=== PATIENT | female | born 1980 | race Caucasian/White ===

== ENCOUNTER 2017-06-29 16:51 | Emergency (ER) | payer MEDICAID, OTHER ==
[~2017-06-29] VITALS: Wt 68.2 kg
[2017-06-29] MEDS ORDERED: KETOROLAC 30 MG INJ IM STA (17:21)
[2017-06-29 18:02] LABS: ADD UMIC YES; UR ASCORBIC ACID NEGATIVE (NEGATIVE); UR BILIRUBIN (Dip) NEGATIVE (NEGATIVE); UR BLOOD (Dip) 3+ mg/dL (NEGATIVE); UR CLARITY CLEAR (CLEAR); UR COLOR YELLOW (YELLOW); UR GLUCOSE (Dip) NEGATIVE (NEGATIVE); UR KETONES (Dip) NEGATIVE (NEGATIVE); UR LEUKOCYTE ESTERASE (Dip) 1+ Leu/ul (NEGATIVE); UR NITRITE (Dip) NEGATIVE (NEGATIVE); UR RBC 1 /HPF (0-5); UR SQUAMOUS EPITHELIAL CELL FEW /HPF (FEW); UR TOTAL PROTEIN (Dip) NEGATIVE (NEGATIVE); UR UROBILINOGEN (Dip) NEGATIVE (NEGATIVE)
--- NOTE | 2017-06-29 18:15 | RADRPT ---
PROCEDURE: XR, left foot. CLINICAL INDICATION: Pain. TECHNIQUE: Three views of the foot are available for review. COMPARISON: None available. FINDINGS: The osseous structures, articular spaces, and surrounding soft tissues are intact. No acute fractur e or dislocation is seen. No radiopaque foreign body is identified. Bony mineralization is normal. IMPRESSION: 1. Unremarkable foot x-ray series. RPTAT: GG .Juve Gibbs MD, MD Date Time Electronically viewed and signed by .Juve Gibbs MD, on 06/29/2017 18:15 .Y/
[2017-06-29] MEDS ORDERED: CEFTRIAXONE 1 GM INJ IM ONE (18:30)
[2017-06-29] MEDS ORDERED: CEPH-443 PO (18:38)
[2017-06-29] MEDS ORDERED: PHEN-538 PO (18:38)
--- NOTE | 2017-06-29 19:46 | ERD ---
ER Documentation Chief Complaint Chief Complaint shanna flank pain HPI This is a 37-year-old female presenting to the emergency department complaining of bilateral moderate flank pain, painful urination for the past few days. Patient denies any fevers, vaginal discharge. ROS All systems reviewed and are negative except as per history of present illness. Medications Home Meds Active Scripts Phenazopyridine Hcl* (Pyridium*) 200 Mg Tab, 200 MG PO TID Y for URINARY PAIN, # 6 TAB Prov:MARY ADKINS PA-C 06/29/17 Cephalexin* (Keflex*) 500 Mg Capsule, 500 MG PO QID for 7 Days, CAP Prov:MARY ADKINS PA-C 06/29/17 Allergies Allergies: Coded Allergies: No Known Allergy (Unverified , 06/29/17) PMhx/Soc Medical and Surgical Hx: pt denies Medical Hx, pt denies Surgical Hx Hx Alcohol Use: No Hx Substance Use: No Hx Tobacco Use: No Smoking Status: Never smoker Physical Exam Vitals Vital Signs Date Time Temp Pulse Resp B/P Pulse Ox O2 Delivery O2 Flow Rate FiO2 06/29/17 16:55 97.5 72 20 129/64 99 Physical Exam Const: WDWN Head: Atraumatic Eyes: Normal Conjunctiva ENT: Normal External Ears, Nose and Mouth. Neck: Full range of motion..~ No meningismus. Resp: Clear to auscultation bilaterally Cardio: Regular rate and rhythm, no murmurs Abd: Soft, TTP pelvic region. non distended. Normal bowel sounds Skin: No petechiae or rashes Back: No midline or flank tenderness Ext: No cyanosis, or edema Neur: Awake and alert Psych: Normal Mood and Affect Results 24 hrs Laboratory Tests Test 06/29/17 17:35 Urine Color YELLOW Urine Clarity CLEAR Urine pH 6.0 Urine Specific Tarpley 1.020 Urine Ketones NEGATIVEmg/dL Urine Nitrite NEGATIVEmg/dL Urine Bilirubin NEGATIVEmg/dL Urine Urobilinogen NEGATIVEmg/dL Urine Leukocyte Esterase 1+Zaid/ul Urine Microscopic RBC 1/HPF Urine Microscopic WBC 10/HPF Urine Squamous Epithelial Cells FEW/HPF Urine Hemoglobin 3+mg/dL Urine Glucose NEGATIVEmg/dL Urine Total Protein NEGATIVEmg/dl Current Medications Medications (Trade) Dose Ordered Sig/Dixon Route PRN Reason Start Time Stop Time Status Last Admin Dose Admin Ketorolac Tromethamine (Toradol) 30 mg ONCE STAT IM 06/29/17 17:21 06/29/17 17:24 DC 06/29/17 17:39 Ceftriaxone Sodium (Rocephin) 1 gm ONCE ONCE IM 06/29/17 18:30 06/29/17 18:31 DC 06/29/17 19:02 Procedures/MDM This is a 37-year-old female presenting to the emergency department complaining of flank pain and dysuria, likely due to a urinary tract infection. Nephrolithiasis or pyelonephritis unlikely. Patient is afebrile, well- appearing and stable to be discharged home with prescription for Keflex and Pyridium. Discussed return to the ER for worsening condition not improving as expected. Departure Diagnosis: Primary Impression: UTI (urinary tract infection) Condition: Stable Additional Instructions: Visite a jones regine franco para un EXAMEN.Regrese a estas instalaciones si no se mejora giovana esperbamos o giovana le dijimos. Mccaulley toda la medicina nova y giovana se le indic. MARY ADKINS PA-C Jun 29, 2017 19:46
== END 2017-06-29 19:29 | disposition home or self-care (01) ==
LOC: FTE 16:51
DX: N39.0 Urinary tract infection, site not specified (principal)
CPT/HCPCS: 73630; 81001; 96372; J0696; J1885; Z7502

== ENCOUNTER 2017-07-30 19:53 | Emergency (ER) | END 2017-07-31 00:05 | disposition home or self-care (01) ==

== ENCOUNTER 2018-03-03 17:50 | Emergency (ER) | END 2018-03-03 21:00 | disposition home or self-care (01) ==

== ENCOUNTER 2018-08-12 14:41 | Emergency (ER) | payer MEDICAID ==
[~2018-08-12] VITALS: Ht 154.9 cm; Wt 72.0 kg
[~2018-08-12 14:41] MED LIST: CEPH-443 PO; HYDR-4011 PO; MAG-19 PO; NAPR-985 PO; NITR-58 PO; OMEP20CA16 PO; ONDA4TAB14 PO; PHEN-538 PO
[2018-08-12 14:44] VITALS: BP 118/57; PULSE 78; RESP 18; Ht 154.9 cm; Wt 72.0 kg
[2018-08-12] MEDS ORDERED: HYDROCODONE/APAP (5/325) TAB PO ONE ×2 (15:30→17:00)
[2018-08-12] MEDS ORDERED: IBUPROFEN 600 MG TAB PO ONE (15:30)
[2018-08-12] MEDS ORDERED: IBUP-1542 PO (16:15)
--- NOTE | 2018-08-12 16:19 | ERD ---
ER Documentation Chief Complaint Chief Complaint pt bib family with c/o right ankle pain s/p twisting it 1 hr ago HPI 38-year-old female presents with right ankle pain after twisting it less than 1 hour prior to presentation. She denies any deficits. She has restricted range of motion due to pain. She denies additional injury. ROS All systems reviewed and are negative except as per history of present illness. Medications Home Meds Active Scripts Ibuprofen* (Motrin*) 600 Mg Tab, 600 MG PO Q6, #20 TAB Prov:FAREED WILHELM MD 08/12/18 Hydrocodone/Acetaminophen (Rutherford 5-325 Tablet) 1 Each Tablet, 1 TAB PO Q6H PRN for PAIN, #7 TAB Prov:AKILAH MOON PA-C 03/03/18 Nitrofurantoin Monohyd Macrocr* (Macrobid*) 100 Mg Capsr, 100 MG PO BID for 14 Days, CAP Prov:AKILAH MOON PA-C 03/03/18 Naproxen* (Naprosyn*) 500 Mg Tablet, 500 MG PO BID PRN for PAIN AND/OR INFLAMMATION, #30 TAB Prov:AKILAH MOON PA-C 03/03/18 Hydrocodone/Acetaminophen ([place]utherford 5-325 Tablet) 1 Each Tablet, 1 TAB PO Q6H PRN for SEVERE PAIN LEVEL 7-10, #20 TAB Prov:CORNELIA LUA NP 07/30/17 Ondansetron (Ondansetron Odt) 4 Mg Tab.rapdis, 4 MG PO Q6H PRN for NAUSEA AND/OR VOMITING, #20 TAB Prov:CORNELIA LUA NP 07/30/17 Magaldrate/Simethicone* (Mylanta*) 355 Ml Susp, 30 ML PO QID PRN for GASTROINTESTINAL UPSET, #1 BOTTLE Prov:CORNELIA LUA NP 07/30/17 Omeprazole* (Omeprazole*) 20 Mg Capsule.dr, 20 MG PO DAILY, #30 Prov:CORNELIA LUA NP 07/30/17 Phenazopyridine Hcl* (Pyridium*) 200 Mg Tab, 200 MG PO TID PRN for URINARY PAIN, #6 TAB Prov:MARY ADKINS PA-C 06/29/17 Cephalexin* (Keflex*) 500 Mg Capsule, 500 MG PO QID for 7 Days, CAP Prov:MARY ADKINS PA-C 06/29/17 Allergies Allergies: Coded Allergies: No Known Allergy (Unverified , 06/29/17) PMhx/Soc Medical and Surgical Hx: pt denies Medical Hx, pt denies Surgical Hx Hx Alcohol Use: No Hx Substance Use: No Hx Tobacco Use: No Smoking Status: Never smoker FmHx Family History: No diabetes, No coronary disease, No other Physical Exam Vitals Vital Signs Date Temp Pulse Resp B/P (MAP) Pulse Ox O2 O2 Flow FiO2 Time Delivery Rate 08/12/18 98.3 78 18 118/57 99 14:44 (77) Physical Exam Const: No acute distress Head: Atraumatic Eyes: Normal Conjunctiva ENT: Normal External Ears, Nose and Mouth. Neck: Full range of motion. No meningismus. Resp: Clear to auscultation bilaterally Cardio: Regular rate and rhythm, no murmurs Abd: Soft, non tender, non distended. Normal bowel sounds Skin: No petechiae or rashes Back: No midline or flank tenderness Ext: No cyanosis, or edema. Tenderness and swelling on the right lateral ankle joint or the tarsals. No deformities otherwise. No erythema, warmth, deficits. Neur: Awake and alert Psych: Normal Mood and Affect Results 24 hrs Current Medications Medications Dose Sig/Dixon Start Time Status Last (Trade) Ordered Route PRN Stop Time Admin Dose Reason Admin 1 tab ONCE ONCE 08/12/18 DC 08/12/18 Acetaminophen PO 15:30 15:21 / 08/12/18 15:31 Hydrocodone Bitart (Rutherford (5/325)) Ibuprofen 600 mg ONCE ONCE 08/12/18 DC 08/12/18 (Motrin) PO 15:30 15:21 08/12/18 15:31 Procedures/MDM Patient given Rutherford and ibuprofen for pain. X-ray right ankle 3V Interpreted by me: Bones: No fracture Joints: No dislocation Foreign Body: None. Impression-normal right ankle x-ray Given crutches and crutch training. Patient was placed in a right ankle Aircast was neurovascular intact after Aircast. Patient presents with signs and symptoms of right ankle sprain with evidence of fracture, dislocation, signs of infection or ischemia or deficits. She will discharged home with instructions for ice, elevation, prescription for ibuprofen, recommendations for primary care follow-up and return precautions. The patient was stable with no new complaints during the ER course. Clinically, there is no current evidence to suggest meningitis, sepsis, acute abdomen, pneumonia, stroke, acute coronary syndrome, pulmonary embolism, aortic dissection or any other emergent condition appearing to require further evaluation or hospitalization. Patient counseled regarding my diagnostic impression and care plan. Prior to discharge all questions answered. Pt agrees with treatment plan and understands strict return precautions. Pt is instructed to follow up with primary care provider within 24- 48 hours. Precautionary instructions provided including instructions to return to the ER if not improving or for any worsening or changing symptoms or concerns. Departure Diagnosis: Primary Impression: Ankle injury Encounter type: initial encounter Laterality: right Qualified Codes: S99.911A - Unspecified injury of right ankle, initial encounter Condition: Stable Patient Instructions: Treating Ankle Sprains, Sprain, Ankle, With X-Ray Referrals: NO PRIMARY,CARE PHYSICIAN (PCP) [facility] ([facility]) Usted se torre hecho un examen mdico de control que le indica que no est en pati condicin que requiera tratamiento urgente en el Departamento de Emergencia. Un estudio ms profundo y el tratamiento de jones condicin pueden esperar sin ningn riesgo hasta que usted sea atendida/o en el consultorio de jones mdico o pati clnica. Es responsabilidad suya arreglar pati stacie para el seguimiento del drew. MANEJO DE CONDICIONES NO URGENTES EN EL FUTURO 1) Si usted tiene un mdico de atencin primaria: Usted debera llamar a jones mdico de atencin primaria antes de venir al departamento de emergencia. Despus de las horas de consultorio, jones doctor o jones asociado/a est disponible por telfono. El mdico o enfermero de belia en el servicio telefnico puede asesorarle por kun medio para atender el problema, o drew contrario se puede programar pati stacie. 2) Si usted no tiene un mdico de atencin primaria: Llame al mdico o clnica de referencia que aparece abajo epifanio las horas de consultorio para hacer pati stacie para que le vean. CLINICAS: [facility] [phone] [facility] [phone] [facility] [phone] [facility] [phone] [place] [phone] [facility] [phone] [address] Additional Instructions: X-ray normal.pone arriba y pone llero. Cheque otro vez con jones doctor primario en el proximo curry or regresa para mas o nueva simptomas. FAREED WILHELM MD Aug 12, 2018 16:19
[2018-08-12] MEDS ORDERED: HYDR-4011 PO (16:33)
== END 2018-08-12 16:40 | disposition home or self-care (01) ==
LOC: FTE 14:41
DX: S99.911A Unspecified injury of right ankle, initial encounter (principal); X58.XXXA Exposure to other specified factors, initial encounter; Y92.9 Unspecified place or not applicable
CPT/HCPCS: 73610; Z7502; Z7610

== ENCOUNTER 2018-10-22 14:43 | Emergency (ER) | payer MEDICAID ==
[~2018-10-22] VITALS: Wt 64.1 kg
[~2018-10-22 14:43] MED LIST changes: +IBUP-1542 PO
[2018-10-22 15:03] VITALS: BP 118/75; PULSE 69; RESP 22
[2018-10-22] MEDS ORDERED: LORAZEPAM 1 MG TAB PO ONE (17:30)
[2018-10-22] MEDS ORDERED: LORA-441 PO (17:32)
--- NOTE | 2018-10-22 18:11 | ERD ---
ER Documentation Chief Complaint Chief Complaint dizzy, anxious, stress x1mo. TORRE+vomiting x2wks HPI This is a 38-year-old female with a history of anxiety presents ED with complaints of panic attack. Patient states that she has been having anxiety off and on for the past month and started experiencing an anxiety attack. Patient admits to anxiousness and nausea and vomiting as well as headache associated with anxiety attack. Patient states that she is extremely anxious because of her work and also because she has children. Patient has been seen by her primary care physician for her ongoing anxiety and was prescribed escitalopram as well as gabapentin but has not started the medications.Patient denies any cough, congestion, fever, chills, chest pain, shortness breath, trouble breathing and all other symptoms. ROS All systems reviewed and are negative except as per history of present illness. Medications Home Meds Active Scripts Lorazepam* (Ativan*) 0.5 Mg Tablet, 0.5 MG PO Q8, #10 TAB Prov:AGUS ROBERTSON PA-C 10/22/18 Hydrocodone/Acetaminophen (Marion 5-325 Tablet) 1 Each Tablet, 1 TAB PO Q6H PRN for PAIN, #7 TAB Prov:FAREED WILHELM MD 08/12/18 Ibuprofen* (Motrin*) 600 Mg Tab, 600 MG PO Q6, #20 TAB Prov:FAREED WILHELM MD 08/12/18 Hydrocodone/Acetaminophen (Marion 5-325 Tablet) 1 Each Tablet, 1 TAB PO Q6H PRN for PAIN, #7 TAB Prov:AKILAH MOON PA-C 03/03/18 Nitrofurantoin Monohyd Macrocr* (Macrobid*) 100 Mg Capsr, 100 MG PO BID for 14 Days, CAP Prov:AKILAH MOON PA-C 03/03/18 Naproxen* (Naprosyn*) 500 Mg Tablet, 500 MG PO BID PRN for PAIN AND/OR INFLAMMATION, #30 TAB Prov:AKILAH MOON PA-C 03/03/18 Hydrocodone/Acetaminophen (Marion 5-325 Tablet) 1 Each Tablet, 1 TAB PO Q6H PRN for SEVERE PAIN LEVEL 7-10, #20 TAB Prov:CORNELIA LUA NP 07/30/17 Ondansetron (Ondansetron Odt) 4 Mg Tab.rapdis, 4 MG PO Q6H PRN for NAUSEA AND/OR VOMITING, #20 TAB Prov:CORNELIA LUA NP 07/30/17 Magaldrate/Simethicone* (Mylanta*) 355 Ml Susp, 30 ML PO QID PRN for GASTROINTESTINAL UPSET, #1 BOTTLE Prov:CORNELIA LUA CUSTOMER ACCOUNT EXECUTIVE 07/30/17 Omeprazole* (Omeprazole*) 20 Mg Capsule.dr, 20 MG PO DAILY, #30 Prov:CORNELIA LUA NP 07/30/17 Phenazopyridine Hcl* (Pyridium*) 200 Mg Tab, 200 MG PO TID PRN for URINARY PAIN, #6 TAB Prov:MARY ADKINS PA-C 06/29/17 Cephalexin* (Keflex*) 500 Mg Capsule, 500 MG PO QID for 7 Days, CAP Prov:MARY ADKINS PA-C 06/29/17 Allergies Allergies: Coded Allergies: No Known Allergy (Unverified , 06/29/17) PMhx/Soc Medical and Surgical Hx: pt denies Medical Hx, pt denies Surgical Hx Hx Alcohol Use: No Hx Substance Use: No Hx Tobacco Use: No Smoking Status: Never smoker Physical Exam Vitals Vital Signs Date Temp Pulse Resp B/P (MAP) Pulse Ox O2 O2 Flow FiO2 Time Delivery Rate 10/22/18 97.9 69 22 118/75 99 15:03 (89) Physical Exam Physical Exam Vitals signs: Reviewed by me. General: Well developed, well nourished, in no acute distress. Patient is awake and alert. Head: Normocephalic, atraumatic. Eyes: Normal conjunctiva, Pupils PERRLA, EOM intact grossly ENT: Pharynx is clear, Moist mucous membranes, external ears, nose and mouth normal Neck: Supple, no masses, lymphadenopathy or JVD Respiratory: Clear to auscultation bilaterally with no wheezing, rhonchi, rales, no distress Cardiovascular: RRR, no murmurs, rubs, or gallops Neurologic: Alert and oriented, moving all extremities, normal speech, no focal weakness, no cerebellar signs. Normal mentation Skin: warm and dry, No rash Psych: Anxious Results 24 hrs Current Medications Medications Dose Sig/Dixon Start Time Status Last (Trade) Ordered Route PRN Stop Time Admin Dose Reason Admin Lorazepam 1 mg ONCE ONCE 10/22/18 DC 10/22/18 (Ativan) PO 17:30 17:38 10/22/18 17:31 Procedures/MDM ER COURSE: The patient was given Ativan The medication was well tolerated and the patient reports improvement in symptoms. The patient was stable throughout ED course. I kept the patient and/or family informed of laboratory and diagnostic imaging results throughout the emergency room course. The patient was promptly evaluated and a treatment plan was devised based on H&P and other data. This plan was discussed with the patient who agreed and had no further questions or concerns prior to discharge. MEDICAL DECISION MAKING: This is a 38-year-old female with a history of anxiety presents ED with panic attack. The differential diagnosis considered included but was not limited to anxiety, ACS, NJ, PE, pneumonia, pneumothorax, among others. Patient is afebrile, non-tachycardic and nontachypneic non-hypoxic. Patient appears anxious but physical examination was otherwise normal.This is likely an anxiety reaction given patient's symptoms and physical examination and history. Patient was given Ativan in the emergency department reports feeling much better. I did lengthy discussion with patient regarding stress reducing techniques such as working out, yoga and meditation and also advised that she follow-up with psychiatry. No evidence of ACS, NJ, aortic dissection, PE, pneumonia, pneumothorax, tension pneumothorax, pleural effusion, and other cardiopulmonary emergencies. vitals are stable and he can be managed close outpatient follow-up. Advised patient follow up with primary care clinics 40 hours. Advised patient to engage in more stress reducing techniques such as working out, yoga, meditation and going and walks. Advised patient to follow-up with psychiatry as well. Return to ED with any worsening symptoms DISPOSITION PLAN: We discussed follow up with the patient's primary care doctor within 24 to 48 hours. Patient counseled regarding my diagnostic impression and care plan. Prior to discharge all questions answered. Pt agrees with treatment plan and understands strict return precautions. Precautionary instructions provided including instructions to return to the ER if not improving or for any worsening or changing symptoms or concerns. SPECIALIST FOLLOW UP RECOMMENDED: None Patient has been advised to follow up with primary care in 1-2 days. Disclaimer: Inadvertent spelling and grammatical errors are likely due to EHR/dictation software use and do not reflect on the overall quality of patient care. Also, please note that the electronic time recorded on this note does not necessarily reflect the actual time of the patient encounter. Departure Diagnosis: Primary Impression: Panic attack Condition: Stable Patient Instructions: Anxiety Reaction, Panic Attack Referrals: KATHRYN CASTRO,DERIK MCNEIL MD,MARIELY MCCORMICK MD, MD,SE CONNORS,CHELSEA LEWIS MD,PIA STEIN,LENA PENDLETON,REZA GAMINO,ERICKA REESE,[facility] () Usted se torre hecho un examen mdico de control que le indica que no est en pati condicin que requiera tratamiento urgente en el Departamento de Emergencia. Un estudio ms profundo y el tratamiento de jones condicin pueden esperar sin ningn riesgo hasta que usted sea atendida/o en el consultorio de jones mdico o apti clnica. Es responsabilidad suya arreglar pati stacie para el seguimiento del drew. MANEJO DE CONDICIONES NO URGENTES EN EL FUTURO 1) Si usted tiene un mdico de atencin primaria: Usted debera llamar a jones mdico de atencin primaria antes de venir al departamento de emergencia. Despus de las horas de consultorio, jones doctor o jones asociado/a est disponible por telfono. El mdico o enfermero de belia en el servicio telefnico puede asesorarle por kun medio para atender el problema, o drew contrario se puede programar pati stacie. 2) Si usted no tiene un mdico de atencin primaria: Llame al mdico o clnica de referencia que aparece abajo epifanio las horas de consultorio para hacer pati stacie para que le vean. CLINICAS: [facility] [phone] [facility] [phone] [facility] [phone] [place] [phone] [place] [phone] [place] [phone] [address] Additional Instructions: Paciente aconseja volver a Departamento de urgencias inmediatamente para sntomas nuevos o que empeoran . Paciente aconseja posteriores con el PCP en 1-2 diallo . Paciente verbaliza la comprehensin y est de acuerdo con el tratamiento y el curso de accin. Si el paciente no tiene ninguna de atencin primaria pueden seguir con [facility] [id number] [place] [address] o [facility] + [address] [address] AGUS ROBERTSON PA-C Oct 22, 2018 18:11
[2018-10-22] MEDS ORDERED: ONDA4TAB14 PO (18:20)
== END 2018-10-22 18:23 | disposition home or self-care (01) ==
LOC: FTE 14:43
DX: F41.0 Panic disorder [episodic paroxysmal anxiety] (principal)
CPT/HCPCS: Z7502; Z7610; 99283

== ENCOUNTER 2019-02-24 16:33 | Emergency (ER) | payer MEDICAID ==
[~2019-02-24] VITALS: Ht 157.5 cm; Wt 67.5 kg
[~2019-02-24 16:33] MED LIST changes: +LORA-441 PO; +ONDA8TAB14 PO; +ZOLP10TA PO
[2019-02-24 16:47] VITALS: Ht 157.5 cm; Wt 67.5 kg
[2019-02-24] MEDS ORDERED: ONDANSETRON (ODT) 4 MG TAB ODT STA (17:28)
--- NOTE | 2019-02-24 18:25 | ERD ---
ER Documentation Chief Complaint Chief Complaint chest pressure with nausea x2 days HPI 39-year-old female presents with nausea for last 2 days. She also has insomnia for the last week which she states is due to the nausea.. She denies cough, fever, vomiting, abdominal pain, urinary complaints. She is otherwise healthy. Last menstrual period 2 months ago although she denies . ROS All systems reviewed and are negative except as per history of present illness. Medications Home Meds Active Scripts Zolpidem Tartrate* (Ambien*) 10 Mg Tablet, 10 MG PO QHS PRN for INSOMNIA, #7 TAB Prov:FAREED WILHELM MD 02/24/19 Ondansetron (Ondansetron Odt) 8 Mg Tab.rapdis, 8 MG PO Q6H PRN for NAUSEA AND/OR VOMITING, #8 TAB Prov:FAREED WILHELM MD 02/24/19 Ondansetron (Ondansetron Odt) 4 Mg Tab.rapdis, 4 MG PO Q6H PRN for NAUSEA AND/OR VOMITING, #10 TAB Prov:AGUS ROBERTSON PA-C 10/22/18 Lorazepam* (Ativan*) 0.5 Mg Tablet, 0.5 MG PO Q8, #10 TAB Prov:AGUS ROBERTSON PA-C 10/22/18 Hydrocodone/Acetaminophen ([place] 5-325 Tablet) 1 Each Tablet, 1 TAB PO Q6H PRN for PAIN, #7 TAB Prov:FAREED WILHELM MD 08/12/18 Ibuprofen* (Motrin*) 600 Mg Tab, 600 MG PO Q6, #20 TAB Prov:FAREED WILHELM MD 08/12/18 Hydrocodone/Acetaminophen ([place] 5-325 Tablet) 1 Each Tablet, 1 TAB PO Q6H PRN for PAIN, #7 TAB Prov:AKILAH MOON PA-C 03/03/18 Nitrofurantoin Monohyd Macrocr* (Macrobid*) 100 Mg Capsr, 100 MG PO BID for 14 Days, CAP Prov:AKILAH MOON PA-C 03/03/18 Naproxen* (Naprosyn*) 500 Mg Tablet, 500 MG PO BID PRN for PAIN AND/OR INFLAMMATION, #30 TAB Prov:AKILAH MOONC 03/03/18 Hydrocodone/Acetaminophen ([place] 5-325 Tablet) 1 Each Tablet, 1 TAB PO Q6H PRN for SEVERE PAIN LEVEL 7-10, #20 TAB Prov:CORNELIA LUA NP 07/30/17 Ondansetron (Ondansetron Odt) 4 Mg Tab.rapdis, 4 MG PO Q6H PRN for NAUSEA AND/OR VOMITING, #20 TAB Prov:CORNELIA LUA NP 07/30/17 Magaldrate/Simethicone* (Mylanta*) 355 Ml Susp, 30 ML PO QID PRN for GASTROINTESTINAL UPSET, #1 BOTTLE Prov:CORNELIA LUA NP 07/30/17 Omeprazole* (Omeprazole*) 20 Mg Capsule.dr, 20 MG PO DAILY, #30 Prov:CORNELIA LUA NP 07/30/17 Phenazopyridine Hcl* (Pyridium*) 200 Mg Tab, 200 MG PO TID PRN for URINARY PAIN, #6 TAB Prov:MARY ADKINS PA-C 06/29/17 Cephalexin* (Keflex*) 500 Mg Capsule, 500 MG PO QID for 7 Days, CAP Prov:MARY ADKINS PA-C 06/29/17 Allergies Allergies: Coded Allergies: No Known Allergy (Unverified , 02/24/19) PMhx/Soc Medical and Surgical Hx: pt denies Medical Hx, pt denies Surgical Hx Hx Alcohol Use: No Hx Substance Use: No Hx Tobacco Use: No Smoking Status: Never smoker FmHx Family History: No diabetes, No coronary disease, No other Physical Exam Vitals Vital Signs Date Temp Pulse Resp B/P (MAP) Pulse Ox O2 O2 Flow FiO2 Time Delivery Rate 02/24/19 98.3 73 18 122/76 100 Room Air 18:57 (91) 02/24/19 98.3 70 18 134/72 100 16:47 (92) Physical Exam Const: No acute distress Head: Atraumatic Eyes: Normal Conjunctiva ENT: Normal External Ears, Nose and Mouth. Neck: Full range of motion. No meningismus. Resp: Clear to auscultation bilaterally Cardio: Regular rate and rhythm, no murmurs Abd: Soft, non tender, non distended. Normal bowel sounds Skin: No petechiae or rashes Back: No midline or flank tenderness Ext: No cyanosis, or edema Neur: Awake and alert Psych: Normal Mood and Affect Results 24 hrs Laboratory Tests Test 02/24/19 17:46 02/24/19 17:48 POC Beta HCG, Qualitative NEGATIVE Bedside Urine pH (LAB) 6.0 Bedside Urine Protein (LAB) 1+ Bedside Urine Glucose (UA) Negative Bedside Urine Ketones (LAB) Trace Bedside Urine Blood Negative Bedside Urine Nitrite (LAB) Negative Bedside Urine Leukocyte Esterase (L 1+ Current Medications Medications Dose Sig/Dixon Start Time Status Last (Trade) Ordered Route PRN Stop Time Admin Dose Reason Admin Ondansetron 8 mg ONCE STAT 02/24/19 DC 02/24/19 HCl (Zofran ODT 17:28 02/24/19 17:37 Odt) 17:30 Procedures/MDM Urine shows no acute abnormalities. hCG negative. Patient given Zofran 8 mg of mouth. Patient presents with no complaints. She has sensation of nausea over the last few days without vomiting, abdominal pain, urinary complaints, signs or symptoms to suggest DKA, acute abdomen, neurologic deficit, additional abnormalities. She has insomnia also for the last several days which appears to be primarily from the nausea. She has no evidence of . She will be treated empirically with Zofran, short course of Ambien, recommendations for primary care follow-up and return precautions. The patient was stable with no new complaints during the ER course. Clinically, there is no current evidence to suggest meningitis, sepsis, acute abdomen, pneumonia, stroke, acute coronary syndrome, pulmonary embolism, aortic dissection or any other emergent condition appearing to require further evaluation or hospitalization. Patient counseled regarding my diagnostic impression and care plan. Prior to discharge all questions answered. Pt agrees with treatment plan and understands strict return precautions. Pt is instructed to follow up with primary care provider within 24- 48 hours. Precautionary instructions provided including instructions to return to the ER if not improving or for any worsening or changing symptoms or concerns. Disclaimer: Inadvertent spelling and grammatical errors are likely due to EHR/dictation software use and do not reflect on the overall quality of patient care. Also, please note that the electronic time recorded on this note does not necessarily reflect the actual time of the patient encounter. Departure Diagnosis: Primary Impression: Insomnia Insomnia type: unspecified Qualified Codes: G47.00 - Insomnia, unspecified Additional Impression: Nausea Condition: Stable Patient Instructions: Nausea, Insomnia [facility] Usted se torre hecho un examen mdico de control que le indica que no est en pati condicin que requiera tratamiento urgente en el Departamento de Emergencia. Un estudio ms profundo y el tratamiento de jones condicin pueden esperar sin ningn riesgo hasta que usted sea atendida/o en el consultorio de jones mdico o pati clni ca. Es responsabilidad suya arreglar pati stacie para el seguimiento del drew. MANEJO DE CONDICIONES NO URGENTES EN EL FUTURO 1) Si usted tiene un mdico de atencin primaria: Usted debera llamar a jones mdico de atencin primaria antes de venir al departam ento de emergencia. Despus de las horas de consultorio, jones doctor o jones asociado/a est disponible por telfono. El mdico o enfermero de belia en el servicio telefnico puede asesorarle por kun medio para atender el problema, o drew contrario se puede programar pati stacie. 2) Si usted no tiene un mdico de atencin primaria: Llame al mdico o clnica de referencia que aparece abajo epifanio las horas de consultorio para hacer pati stacie para que le vean. CLINICAS: [facility] [phone] [facility] [phone] [facility] [phone] [address] [facility]. [place] [phone] [facility]. [place] [phone] [facility]. [phone] [place] [address] [place] Additional Instructions: Examines normal hoy. Cheque otro vez con jones doctor primario en el proximo curry or regresa para mas o nueva simptomas. FAREED WILHELM MD Feb 24, 2019 18:25
[2019-02-24 18:57] VITALS: BP 122/76; PULSE 73; RESP 18
== END 2019-02-24 18:58 | disposition home or self-care (01) ==
LOC: FTE 16:33
DX: G47.00 Insomnia, unspecified (principal)
CPT/HCPCS: 81003; 81025; 93005; Z7502; Z7610; 99283

== ENCOUNTER 2019-03-27 14:35 | Emergency (ER) | payer MEDICAID ==
[~2019-03-27] VITALS: Ht 160 cm; Wt 80.0 kg
[2019-03-27 14:38] VITALS: BP 138/68; PULSE 76; RESP 18; Ht 160 cm; Wt 80.0 kg
[2019-03-27] MEDS ORDERED: KETOROLAC 30 MG INJ IM STA (15:27)
[2019-03-27] MEDS ORDERED: ONDANSETRON (ODT) 4 MG TAB ODT STA (15:27)
[2019-03-27] MEDS ORDERED: ALPRAZOLAM 0.25 MG TAB PO ONE (15:30)
[2019-03-27] MEDS ORDERED: LIDOCAINE 1% (MDV) 20 ML INJ SC ONE (17:30)
[2019-03-27] MEDS ORDERED: CEFTRIAXONE 500 MG INJ IM ONE (17:30)
[2019-03-27] MEDS ORDERED: LIDOCAINE 1% (MDV) 20 ML INJ INJ ONE (17:30)
== END 2019-03-27 17:44 | disposition home or self-care (01) ==
LOC: FTE 14:35
DX: F41.9 Anxiety disorder, unspecified (principal); N30.00 Acute cystitis without hematuria
CPT/HCPCS: 81001; 81025; 96372; J0696; J1885; Z7502; Z7610